=== PATIENT | male | born 1995 | race Hispanic/Latino ===

== ENCOUNTER 2016-07-25 22:32 | Emergency (ER) | payer OTHER | END 2016-07-25 23:05 | disposition home or self-care (01) | LOC: NAV ERS 22:32 | DX: S00.03XA Contusion of scalp, initial encounter (principal); J45.909 Unspecified asthma, uncomplicated; F90.9 Attention-deficit hyperactivity disorder, unspecified type; F17.210 Nicotine dependence, cigarettes, uncomplicated; W22.8XXA Striking against or struck by other objects, initial encounter | CPT/HCPCS: 99283 ==

== ENCOUNTER 2016-10-07 11:46 | Emergency (ER) | payer OTHER ==
[2016-10-07] MEDS ORDERED: cefTRIAXone\\ROCEPHIN 500 MG VIAL ONE (13:07)
[2016-10-07] MEDS ORDERED: Azithromycin 250 MG TAB ONE (13:07)
[2016-10-07] MEDS ORDERED: Sterile Water 10 ML ONE (13:08)
[2016-10-07 13:33] LABS: Bilirubin Negative (Negative); Blood, Urine Negative (Negative); Clarity Clear (Clear); Glucose, Urine (Dipstick) Negative (Negative); Leukocyte Negative (Negative); Nitrite Negative (Negative); Protein, Urine (Dipstick) Negative (Neg-Trace); Specific Gravity, Urine 1.015 (1.005-1.030); Urobilinogen 0.2 mg/dL (0.2-1.0)
[2016-10-08 21:27] LABS: Chlamydia by PCR Not Detected (NotDetected); GC by PCR Not Detected (NotDetected)
== END 2016-10-07 13:28 | disposition home or self-care (01) ==
LOC: NAV ERS 11:46
DX: N34.1 Nonspecific urethritis (principal); J45.909 Unspecified asthma, uncomplicated; F90.9 Attention-deficit hyperactivity disorder, unspecified type; F17.210 Nicotine dependence, cigarettes, uncomplicated
CPT/HCPCS: 81003; 87491; 87591; 96372; A4216; J0696

== ENCOUNTER 2017-01-13 21:32 | Emergency (ER) | payer OTHER | END 2017-01-13 22:20 | LOC: NAV ERS 21:32 | DX: R45.1 Restlessness and agitation (principal); J45.909 Unspecified asthma, uncomplicated; F90.9 Attention-deficit hyperactivity disorder, unspecified type; F41.9 Anxiety disorder, unspecified; F17.210 Nicotine dependence, cigarettes, uncomplicated | CPT/HCPCS: 99284 ==

== ENCOUNTER 2017-07-08 10:16 | Emergency (ER) | payer OTHER ==
[2017-07-08] MEDS ORDERED: Ibuprofen 800 MG TAB ONE (11:38)
== END 2017-07-08 12:10 | disposition home or self-care (01) ==
LOC: NAV ERS 10:16
DX: J02.9 Acute pharyngitis, unspecified (principal); J04.0 Acute laryngitis; J45.909 Unspecified asthma, uncomplicated; F90.9 Attention-deficit hyperactivity disorder, unspecified type; F17.210 Nicotine dependence, cigarettes, uncomplicated
CPT/HCPCS: 87081; 87430; 87804; 99283